=== PATIENT | female | born 1965 | race Caucasian/White ===

== ENCOUNTER 2017-04-02 14:48 | Emergency (ER) | payer OTHER ==
[~2017-04-02] VITALS: Ht 165.1 cm; Wt 136.1 kg
--- NOTE | ~2017-04-02 | CT71 ---
[facility] A Service [facility] RADIOLOGY TEXT RESULTS PATIENT: BETHANY GOLDSTEIN LOCATION: [facility] : 63 UNIT #: [id number] AGE: [address]: Chidi Reyes DO SEX: F ORDER DR: [id number] [id number] [facility] [place], [place] [address] [id number] E MR#: [id number] Acc #: [id number] NAME: BETHANY GOLDSTEIN : 1965 SEX: F STUDY DATE/TIME: 04/02/2017 20:57 UNIT: [facility] ROOM: STUDY DESCRIPTION: CT Head Wo Contrast Attending Physician: Chidi Reyes D.O. Ordering Physician: Chidi Reyes D.O. Primary Care Physician: Ric Smith M.D. MEDICAL IMAGING REPORT This report is preliminary unless electronic signature is present EXAM CT head without IV contrast. COMPARISON None. HISTORY 51-year-old female with headache after falling today. TECHNIQUE This CT exam was performed with one or more of the following radiation dose reduction techniques: automatic exposure control, adjustment of mA and/or kV according to patient size, and iterative reconstruction. FINDINGS No significant subcutaneous hematoma. Visualized mastiod air cells, middle ears and paranasal sinuses are well aerated. No acute fractures or suspicious osseous lesions. Normal cerebral and cerebellar volume. No abnormal extraaxial fluid collection or mass effect. No acute intracranial hemorrhage. Evaluation for acute ischemia is limited by patient motion. No convincing evidence of acute ischemia on this examination. IMPRESSION Limited evaluation due to patient motion. No acute intracranial abnormality is seen. Dictated by... Kailash Benson M.D. [facility] A Service [facility] RADIOLOGY TEXT RESULTS PATIENT: BETHANY GOLDSTEIN LOCATION: [facility] : 63 UNIT #: [id number] AGE: [address]: Chidi Reyes DO SEX: F ORDER DR: THIS IS AN ELECTRONICALLY VERIFIED REPORT Kailash Benson M.D. at 04/05/2017 11:21 AM WALLY/jeanette TD: 04/03/2017 13:51 JOB #: [id number] MEDICAL IMAGING REPORT Page 1 of 1 COPY
--- NOTE | ~2017-04-02 | CR181 ---
[facility] A Service of [facility] RADIOLOGY TEXT RESULTS PATIENT: BETHANY GOLDSTEIN LOCATION: [facility] : 63 UNIT #: [id number] AGE: [address]: Chidi Reyes DO SEX: F ORDER DR: [id number] [facility] [address] [place], [place] [address] [id number] E MR#: [id number] Acc #: [id number] NAME: BETHANY GOLDSTEIN : 1965 SEX: F STUDY DATE/TIME: UNIT: [facility] ROOM: STUDY DESCRIPTION: CR Lumbar Spine 2 or 3 Views Attending Physician: Chidi Reyes D.O. Ordering Physician: Chidi Reyes D.O. Primary Care Physician: Ric Smith M.D. MEDICAL IMAGING REPORT This report is preliminary unless electronic signature is present EXAM Lumbar spine 04/02 at 21:31 INDICATIONS Low back pain after a fall today. FINDINGS 3 views of the lumbar spine were obtained. The exam is degraded by poor positioning as the lateral views are oblique. There is bilateral L5-S1 facet arthropathy. No acute fracture is seen. Degenerative disc disease as suspected at L4-5 and L5-L1. IMPRESSION Suboptimal exam due to positioning. No definite acute fracture. Dictated by... Dequan Garrison Jr., M.D. THIS IS AN ELECTRONICALLY VERIFIED REPORT Dequan Garrison Jr., M.D. at 04/03/2017 9:13 PM RLK/to TD: 04/03/2017 13:50 JOB #: [id number] MEDICAL IMAGING REPORT Page 1 of 1 COPY
--- NOTE | ~2017-04-02 | CR173 ---
[facility] A Service of [facility] RADIOLOGY TEXT RESULTS PATIENT: BETHANY GOLDSTEIN LOCATION: [facility] : 63 UNIT #: [id number] AGE: [address]: Chidi Reyes DO SEX: F ORDER DR: [id number] [facility] [address] [place], [place] [address] [id number] E MR#: [id number] Acc #: [id number] NAME: BETHANY GOLDSTEIN : 1965 SEX: F STUDY DATE/TIME: 04/02/2017 UNIT: [facility] ROOM: STUDY DESCRIPTION: CR Knee 3 Views Rt Attending Physician: Chidi Reyes D.O. Ordering Physician: Chidi Reyes D.O. Primary Care Physician: Ric Smith M.D. MEDICAL IMAGING REPORT This report is preliminary unless electronic signature is present EXAM Right knee 04/02/2017 at 21:20. INDICATIONS Knee pain after fall today. FINDINGS 3 views of the right knee were obtained. There is tricompartmental osteoarthritis with spur formation. No fracture or malalignment is seen. There is no definite joint effusion. IMPRESSION Osteoarthritis. No acute findings. Dictated by... Dequan Garrison Jr., M.D. THIS IS AN ELECTRONICALLY VERIFIED REPORT Dequan Garrison Jr., M.D. at 04/03/2017 9:13 PM KIMBERLY/diane TD: 04/03/2017 13:46 JOB #: [id number] MEDICAL IMAGING REPORT Page 1 of 1 COPY
--- NOTE | ~2017-04-02 | CR93 ---
[facility] A Service of [facility] RADIOLOGY TEXT RESULTS PATIENT: BETHANY GOLDSTEIN LOCATION: [facility] : 63 UNIT #: [id number] AGE: [address]: Chidi Reyes DO SEX: F ORDER DR: [id number] [facility] [address] [place], [place] [address] [id number] E MR#: [id number] Acc #: [id number] NAME: BETHANY GOLDSTEIN : 1965 SEX: F STUDY DATE/TIME: 04/02/2017 21:11 UNIT: [facility] ROOM: STUDY DESCRIPTION: CR Elbow Min 3 Views Lt Attending Physician: Chidi Reyes D.O. Ordering Physician: Chidi Reyes D.O. Primary Care Physician: Ric Smith M.D. MEDICAL IMAGING REPORT This report is preliminary unless electronic signature is present EXAM Left elbow, 04/02 at 2111 hours. INDICATIONS Pain in the elbow radiating down the forearm after a fall today. FINDINGS Three views of the left elbow were obtained. IV cannula noted in the antecubital fossa. No fracture or malalignment is seen. There is no joint effusion. Soft tissue injury is probably present on the olecranon. Correlate clinically. IMPRESSION Soft tissue injury over the olecranon. No fracture, dislocation, or joint effusion identified. Dictated by... Dequan Garrison Jr., M.D. THIS IS AN ELECTRONICALLY VERIFIED REPORT Dequan Garrison Jr., M.D. at 04/03/2017 9:13 PM KIMBERLY/enedelia TD: 04/03/2017 13:52 JOB #: [id number] MEDICAL IMAGING REPORT Page 1 of 1 COPY
--- NOTE | ~2017-04-02 | CR142 ---
[facility] A Service of [facility] RADIOLOGY TEXT RESULTS PATIENT: BETHANY GOLDSTEIN LOCATION: [facility] : 63 UNIT #: [id number] AGE: [address]: Chidi Reyes DO SEX: F ORDER DR: [id number] [facility] [address] [place], [place] [address] [id number] E MR#: [id number] Acc #: [id number] NAME: BETHANY GOLDSTEIN : 1965 SEX: F STUDY DATE/TIME: UNIT: [facility] ROOM: STUDY DESCRIPTION: CR Hand Min 3 Views Rt Attending Physician: Chidi Reyes D.O. Ordering Physician: Chidi Reyes D.O. Primary Care Physician: Ric Smith M.D. MEDICAL IMAGING REPORT This report is preliminary unless electronic signature is present EXAM Right hand 04/02 at 21:03 INDICATIONS Hand pain and swelling after a fall today. FINDINGS 3 views of the right hand were obtained. No fracture or malalignment is identified. Soft tissues are unremarkable. IMPRESSION Negative right hand. Dictated by... Dequan Garrison Jr., M.D. THIS IS AN ELECTRONICALLY VERIFIED REPORT Dequan Garrison Jr., M.D. at 04/03/2017 9:13 PM RLCarlos/manuela TD: 04/03/2017 13:45 JOB #: [id number] MEDICAL IMAGING REPORT Page 1 of 1 COPY
[~2017-04-02 14:48] MED LIST: CLINDAMYCIN HC300 MG PO; ULTRAM PO
[2017-04-02 19:53] LABS: BASOPHIL# 0.1 X10e3 (0-0.3); BASOPHIL% 0.4 % (0-2.5); EOSINOPHIL# 0.1 X10e3 (0-0.7); EOSINOPHIL% 0.4 % (0.0-7.0); HEMATOCRIT 37.8 % (35.0-45.0); HEMOGLOBIN 12.4 gm/dL (12.0-16.0); LYMPHOCYTE# 2.9 X10e3 (1.0-3.5); LYMPHOCYTE% 18.5 % (17.0-45.0); MEAN CELL VOLUME 87.6 FL (83-96); MEAN CORPUSCULAR HEMOGLOBIN 28.7 PG (28-34); MEAN CORPUSCULAR HGB CONC 32.7 g/dL (30-36); MEAN PLATELET VOLUME 9.7 FL (6.5-11.5); MONOCYTE# 0.8 X10e3 (0-1.0); MONOCYTE% 5.2 % (3.0-12.0); NEUTROPHIL# 11.8 X10e3 (1.5-7.1); NEUTROPHIL% 75.5 % (40-75); PLATELET COUNT 205 X10e3 (140-420); RED BLOOD COUNT 4.32 X10e (3.90-5.30); RED CELL DISTRIBUTION WIDTH 15.3 % (11.0-15.5); WHITE BLOOD COUNT 15.7 X10e3 (4.0-10.5)
[2017-04-02 19:54] LABS: DIFF IND YES
[2017-04-02 20:07] LABS: INR 0.9; PARTIAL THROMBOPLASTIN TIME 26.5 SECONDS (23.5-31.3); PROTHROMBIN TIME (PATIENT) 9.9 SECONDS (10.0-11.7)
[2017-04-02 20:10] LABS: PLATELET ESTIMATE NORMAL (NORMAL); RBC NORMAL YES
[2017-04-02 20:19] LABS: ALBUMIN SERUM 3.9 g/dL (3.5-5.0); ALKALINE PHOSPHATASE 80 U/L (32-92); ALT (SGPT) 33 U/L (10-40); AST (SGOT) 22 U/L (10-42); BILIRUBIN,TOTAL 0.6 mg/dL (0.2-2.0); BLOOD UREA NITROGEN 18 mg/dL (9-23); CALCIUM SERUM 8.9 mg/dL (8.4-10.2); CARBON DIOXIDE 30 mmol/L (22-31); CHLORIDE 102 mmol/L (100-111); GLOM FILT RATE Estimated 64.8 mL/min (>60); GLUCOSE FASTING 99 mg/dL (70-110); POTASSIUM 3.7 mmol/L (3.5-5.1); PROTEIN TOTAL SERUM 7.6 g/dL (6.0-8.3); SODIUM 140 mmol/L (135-145)
[2017-04-02 20:21] LABS: BILIRUBIN, DIRECT <0.1 mg/dL (0.0-0.2); BILIRUBIN,INDIRECT 0.5 mg/dL (0.0-0.9)
== END 2017-04-03 00:10 | disposition home or self-care (01) ==
LOC: CED 14:48
PROVIDERS: Emergency Medicine
DX: S51.012A Laceration without foreign body of left elbow, initial encounter (principal); S80.01XA Contusion of right knee, initial encounter; I10 Essential (primary) hypertension; E78.5 Hyperlipidemia, unspecified; Z88.6 Allergy status to analgesic agent; W01.0XXA Fall on same level from slipping, tripping and stumbling without subsequent striking against object, initial encounter
CPT/HCPCS: 12001; 36415; 70450; 72100; 73080; 73130; 73562; 80048; 80076; 84484; 85025; 85610; 85730; 96374; 96375; 99283; J2270; J2405